=== PATIENT | male | born 1990 | race Caucasian/White ===

== ENCOUNTER 2017-09-10 01:14 | Emergency (ER) | payer OTHER ==
[2017-09-10] MEDS ORDERED: Morphine ORAL.SOLN 10 mg* 2 MG/ML UDC 5 ml PO ONE (01:32)
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
[2017-09-10 02:50] VITALS: BP 129/72
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
== END 2017-09-10 02:48 | disposition home or self-care (01) ==
LOC: ED 01:14
DX: M54.2 Cervicalgia (principal); Z04.1 Encounter for examination and observation following transport accident
CPT/HCPCS: 99282; A9270-GY

== ENCOUNTER 2017-09-20 09:43 | Day surgery (SDC) | payer OTHER ==
[~2017-09-20 09:43] MED LIST: Buffered Lidocaine 0.9% SYRIN* 5 ML/SYR SYRINGE INTRADERM ONE; Dexamethasone TAB* 4 MG ONE; Dexamethasone TAB* 4 MG PO ONE; DiMENhydriNATE IV* 50 MG/ML VIAL IV PUSH PRN; Famotidine IV* 10 MG/ML 2 ML (20 mg) IV ONE; Famotidine IV* 10 MG/ML 2 ML (20 mg) ONE; Morphine INJ* 2 MG/ML 1 ML SYRINGE (TWO MG - NEW SYRINGE VERSION) IV PRN; Naloxone* 0.4 MG/ML 1 ML VIAL IV PRN; Ondansetron ODT TAB* 4 MG ONE; Ondansetron TAB* 4 MG PO ONE; PROCHLORPERAZINE INJ 5 MG/ML 2 ML VIAL IV PRN; Scopolamine 1.5 mg* PATCH TRANSDERM PRN; oxyCODONE/Acetamin 5/325 MG* TAB PO PRN
[2017-09-20] MEDS ORDERED: Famotidine IV* 10 MG/ML 2 ML (20 mg) ONE (10:11)
[2017-09-20] MEDS ORDERED: Ondansetron ODT TAB* 4 MG ONE (10:12)
[2017-09-20] MEDS ORDERED: Dexamethasone TAB* 4 MG ONE (10:12)
[2017-09-20] MEDS ORDERED: Midazolam* 1 MG/ML 5 ML VIAL (5 MG) ONE (11:27)
[2017-09-20] MEDS ORDERED: KETAMINE HCL* 50 MG/ML 10 ML VIAL ONE (11:27)
[2017-09-20] MEDS ORDERED: fentaNYL* 50 MCG/ML 2 ML VIAL (100 MCG VIAL) ONE ×2 (11:27→15:04)
[2017-09-20] MEDS ORDERED: ceFAZolin 2 GM PREMIX (*) 2 GM/50 ML BAG IVPB ONE (11:52)
[2017-09-20] MEDS ORDERED: Bupivacaine 0.5% PF 10 ML VIAL INJ ONE (11:53)
[2017-09-20] MEDS ORDERED: Propofol* 10 MG/ML 20 ML BTL IV PUSH ONE (12:51)
[2017-09-20] MEDS ORDERED: Ketorolac INJ* 30 MG/ML 1 ML VIAL ONE (12:51)
[2017-09-20] MEDS ORDERED: Lidocaine 2% PF * 5 ML VIAL ONE (12:51)
[2017-09-20] MEDS ORDERED: Morphine VIAL* 10 MG/ML 1 ML VIAL ONE (12:51)
[2017-09-20] MEDS ORDERED: PROCHLORPERAZINE INJ 5 MG/ML 2 ML VIAL ONE (12:51)
--- NOTE | 2017-09-20 14:50 | RAD ---
CPT II Codes: G9500 Indication: Traumatic left clavicle fracture. Fluoroscopic services provided for referring physician. 16.2 seconds of fluoroscopy time was used. 3 spot images demonstrates internal fixation of the clavicle fracture. IMPRESSION: Fluoroscopic services provided for referring physician for internal fixation left clavicle fracture.
[2017-09-20] MEDS: fentaNYL* 50 MCG/ML 2 ML VIAL (100 MCG VIAL) IV PRN ×2 (15:05→15:19)
--- NOTE | 2017-09-20 15:36 | RAD ---
Indication: Postop LEFT clavicle ORIF. Assess for pneumothorax. Comparison: No relevant prior exams available on the [facility] PACS for comparison. Technique: Upright AP 1515 hours Report: Clear lungs and pleural spaces. Negative for pneumothorax. The heart, pulmonary vasculature, and mediastinal contours are unremarkable. Postsurgical change of plate and screw internal fixation of the mid to distal LEFT clavicle fracture with anatomic alignment in the AP projection. Overlying cutaneous erika and soft tissue swelling. IMPRESSION: #. Negative for pneumothorax.
[2017-09-20] MEDS ORDERED: oxyCODONE/Acetamin 5/325 MG* TAB ONE (15:56)
[2017-09-20 16:51] VITALS: BP 123/68
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
[2017-09-23] MEDS ORDERED: Scopolamine PATCH Remove* 1 NOTE MISC PATCH OFF ONE (05:49)
== END 2017-09-20 16:49 | disposition home or self-care (01) ==
LOC: OR 09:43
PROVIDERS: ATTEND Orthopaedic Surgery
DX: S42.022A Displaced fracture of shaft of left clavicle, initial encounter for closed fracture (principal); Z87.891 Personal history of nicotine dependence; V47.5XXA Car driver injured in collision with fixed or stationary object in traffic accident, initial encounter; Y92.410 Unspecified street and highway as the place of occurrence of the external cause
CPT/HCPCS: 71045; 76001; A9270-GY; C1713; C1776; J0690; J0780; J1885; J2250; J2270; J2704; J3010; J8540

== ENCOUNTER 2017-09-29 16:56 | Emergency (ER) | payer BC, OTHER ==
[2017-09-29 17:05] VITALS: BP 124/65
--- OUTSIDE RECORDS SUMMARY | 2017-09-29 17:23 | XMS REPORT ---
:1990 External Reference #:[id number] Author Organization Contactual Address [address] [place] [address] Phone [phone] Care Team Providers Name Role Phone Samir Alexandre MD Primary Care Physician Unavailable Payers Type Date Identification Numbers Payment Provider Subscriber Commercial Policy Number: [id number] [employer] Scout Angel PayID: [id number] [address] [address] [place] [address] Problems Date Description Provider Status Onset: 09/15/2017 Closed fracture of acromial end of clavicle Rony Vo MD Active Family History Date Family Member(s) Problem(s) Comments General Hypertension Social History Type Date Description Comments Lives With other Occupation Currently Working ETOH Use Occasionally consumes alcohol Smoking Patient has never smoked Exercise Type/Frequency Exercises regularly Allergies, Adverse Reactions, Alerts Date Description Reaction Status Severity Comments 09/15/2017 NKDA active Medications Medication Date Status Form Strength Qnty SIG Indications Ordering Provider Acetaminophen Active Tablets 325mg 2 tablets Unknown 00 by mouth every 6 hours as needed for pain/fever Ibuprofen 200 00 Active Tablets 200mg 400-600mg Unknown 00 every 6 hours as needed for pain. Vital Signs Date Vital Result Comment 09/15/2017 Height 68 inches 5'8" Weight 148.00 lb BP Systolic 120 mmHg BP Diastolic 74 mmHg Respiratory Rate 18 /min Body Temperature 98.1 F Pain Level 5 BMI (Body Mass Index) 22.5 kg/m2 09/13/2017 Weight 148.00 lb Results Description No Information Procedures Description No Information Plan of Care Future Appointment(s):09/19/2017 2:00 [facility] - Rony Vo, [id number] Disp fx of lateral end of left clavicle, init for clos fxFollow up:Follow up: monday
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
[2017-09-29 17:58] LABS: ABS Basophils 0 10^3/ul (0-0.2); ABS Eosinophils 0.1 10^3/ul (0-0.6); ABS Lymphocytes 2.1 10^3/ul (1.0-4.8); ABS Monocytes 0.6 10^3/ul (0-0.8); ABS Neutrophils 5.9 10^3/ul (1.5-7.7); ABS Nucleated RBC 0 10^3/ul; Eosinophil % 1.7 % (0-6); Hematocrit 43 % (42-52); Hemoglobin 14.9 g/dl (14.0-18.0); Lymphocyte % 24.3 % (25-47); Mean Corpuscular HGB Conc 35 g/dl (31-36); Mean Corpuscular Hemoglobin 31 pg (27-31); Mean Corpuscular Volume 88 fL (80-94); Mean Platelet Volume 7.9 um3 (7.4-10.4); Nucleated Red Blood Cells % 0; Platelet Count 344 10^3/ul (150-450); Red Blood Count 4.87 10^6/ul (4.00-5.40); Red Cell Distribution Width 13 % (10.5-15); White Blood Count 8.8 10^3/ul (3.5-10.8)
[2017-09-29] MEDS ORDERED: Cephalexin CAP* 500 MG PO ONE (18:30)
--- NOTE | 2017-09-29 18:32 | ED ---
Upper Extremity Pain - HPI Summary HPI Summary: 26 male presents with potentially left clavicle wound infection. He states that last he had the surgery done. He states erika are placed into his clavicle area on that day after the surgery. He states over today he noticed some redness to the area. No fevers. No drainage from the wound. He has no medical conditions. He is not diabetic. Has minimal pain. He states that he also feels erika are loose so would like them removed. - History of Current Complaint Chief Complaint: EDShoulderClavicCharo Stated Complaint: POS POST OP INFECTION Time Seen by Provider: 09/29/17 17:50 - Allergies/Home Medications Allergies/Adverse Reactions: Allergies Allergy/AdvReac Type Severity Reaction Status Date / Time No Known Allergies Allergy Verified 09/29/17 17:05 PMH/Surg Hx/FS Hx/Imm Hx Endocrine/Hematology History: Denies: Hx Diabetes Cardiovascular History: Denies: Hx Hypertension Infectious Disease History: No Infectious Disease History: Denies: Traveled Outside the [place] in Last 30 Days - Family History Known Family History: Negative: Diabetes - Social History Alcohol Use: None Substance Use Type: Reports: None Smoking Status (MU): Never Smoked Tobacco Review of Systems Negative: Fever Negative: Chest Pain Negative: Shortness Of Breath Positive: Rash All Other Systems Reviewed And Are Negative: Yes Physical Exam Triage Information Reviewed: Yes Vital Signs On Initial Exam: Initial Vitals Temp Pulse Resp BP Pulse Ox 98.6 F 90 16 124/65 97 09/29/17 17:03 09/29/17 17:03 09/29/17 17:03 09/29/17 17:03 09/29/17 17:03 Vital Signs Reviewed: Yes Appearance: Positive: Well-Appearing Skin: Positive: Warm, Dry, Other - erika on left clavicle with minimial erythema around,no streaking Head/Face: Positive: Normal Head/Face Inspection Eyes: Positive: Normal, Conjunctiva Clear ENT: Positive: Pharynx normal Neck: Positive: Supple, Nontender, No Lymphadenopathy Respiratory/Lung Sounds: Positive: Clear to Auscultation, Breath Sounds Present Cardiovascular: Positive: Normal, RRR Musculoskeletal: Positive: Normal Neurological: Positive: Normal Psychiatric: Positive: Normal Diagnostics - Vital Signs Vital Signs Temp Pulse Resp BP Pulse Ox 09/29/17 17:03 98.6 F 90 16 124/65 97 - Laboratory Lab Results: Lab Results 09/29/17 09/29/17 09/29/17 Range/Units 17:47 17:47 17:47 WBC 8.8 (3.5-10.8) 10^3/ul RBC 4.87 (4.00-5.40) 10^6/ul Hgb 14.9 (14.0-18.0) g/dl Hct 43 (42-52) % MCV 88 (80-94) fL MCH 31 (27-31) pg MCHC 35 (31-36) g/dl RDW 13 (10.5-15) % Plt Count 344 (150-450) 10^3/ul MPV 7.9 (7.4-10.4) um3 Neut % (Auto) 67.1 (38-83) % Lymph % (Auto) 24.3 L (25-47) % Concho % (Auto) 6.4 (0-7) % Eos % (Auto) 1.7 (0-6) % Baso % (Auto) 0.5 (0-2) % Absolute Neuts (auto) 5.9 (1.5-7.7) 10^3/ul Absolute Lymphs (auto) 2.1 (1.0-4.8) 10^3/ul Absolute Monos (auto) 0.6 (0-0.8) 10^3/ul Absolute Eos (auto) 0.1 (0-0.6) 10^3/ul Absolute Basos (auto) 0 (0-0.2) 10^3/ul Absolute Nucleated RBC 0 10^3/ul Nucleated RBC % 0 Sodium 139 (135-145) mmol/L Potassium 4.3 (3.5-5.0) mmol/L Chloride 104 (101-111) mmol/L Carbon Dioxide 25 (22-32) mmol/L Anion Gap 10 (2-11) mmol/L BUN 13 (6-24) mg/dL Creatinine 0.96 (0.67-1.17) mg/dL Est GFR ( Amer) 113.7 (>60) Est GFR (Non-Af Amer) 94.0 (>60) BUN/Creatinine Ratio 13.5 (8-20) Glucose 107 H (70-100) mg/dL Lactic Acid 1.7 (0.5-2.0) mmol/L Calcium 9.7 (8.6-10.3) mg/dL Total Bilirubin 0.40 (0.2-1.0) mg/dL AST 17 (13-39) U/L ALT 22 (7-52) U/L Alkaline Phosphatase 55 (34-104) U/L Total Protein 7.7 (6.4-8.9) g/dL Albumin 4.9 (3.2-5.2) g/dL Globulin 2.8 (2-4) g/dL Albumin/Globulin Ratio 1.8 (1-3) Result Diagrams: 09/29/17 17:47 09/29/17 17:47 Lab Statement: Any lab studies that have been ordered have been reviewed, and results considered in the medical decision making process. Course/Dx - Course Course Of Treatment: 26 male presents with potentially left clavicle wound infection. He states that last he had the surgery done. He states erika are placed into his clavicle area on that day after the surgery. He states over today he noticed some redness to the area. No fevers. No drainage from the wound. He has no medical conditions. He is not diabetic. Has minimal pain. He states that he also feels erika are loose so would like them removed. on exam has minimial erythema around wound that is not warmth to touch, appears most like healing wound rather than cellulitis. no evidence of dehinscence. labs wbc normal. will treat with keflex. patient requested 2 erika removed as they are loose which did and placed steristrip. warned of signs to return to ED. patient understand and agrees with plan. - Diagnoses Differential Diagnosis/HQI/PQRI: Positive: Other - cellulitis, dehinscnce, healing wound Provider Diagnoses: Visit for wound check Discharge - Sign-Out/Discharge Documenting (check all that apply): Patient Departure - Discharge Plan Condition: Good Disposition: HOME Prescriptions: Cephalexin CAP* [Keflex CAP*] 500 mg PO BID #13 cap Patient Education Materials: [employer] [facility] (ED) Referrals: Samir Alexandre MD [Primary Care Provider] - Additional Instructions: take keflex twice a day for 7 days follow up with ortho as scheduled Return to ED if develop fever, pus from wound, spreading redness, or any new or worsening symptoms - Billing Disposition and Condition Condition: GOOD Disposition: Home
== END 2017-09-29 18:40 | disposition home or self-care (01) ==
LOC: ED 16:56
DX: Z48.89 Encounter for other specified surgical aftercare (principal)
CPT/HCPCS: 36415; 80053; 83605; 85025; 87040; 99282; A9270-GY